=== PATIENT | male | born 1935 | race Caucasian/White ===

== ENCOUNTER → 2016-07-29 | Outpatient (CLI) | payer MEDICARE, BC ==
[~2016-07-29] MED LIST: CARAFATE1 GM/10 ML PO; DOCUSATE CALCI100 MG PO; DUO-KAPS1 CAP PO; MOBIC7.5 M1 PO; OYSTER SHELL C500 M3 PO; RED RICE YEAST E0.4%; RESTASIS0.05% OP; ST. JOSEPH81 M2 PO
== END ==
LOC: LAB 12:19
DX: K59.00 Constipation, unspecified (principal)

== ENCOUNTER → 2017-02-01 | Outpatient (CLI) | payer MEDICARE, BC ==
[2014-04-02 10:30] VITALS: BP 178/79
== END ==
LOC: LAB 10:10
DX: R30.0 Dysuria (principal); R31.9 Hematuria, unspecified

== ENCOUNTER → 2017-06-09 | Outpatient (CLI) | payer MEDICARE, BC ==
[2014-04-02 10:30] VITALS: BP 178/79
== END ==
LOC: RAD 08:35
DX: M79.671 Pain in right foot (principal)

== ENCOUNTER → 2017-09-30 | Outpatient (CLI) | payer MEDICARE, BC ==
[2014-04-02 10:30] VITALS: BP 178/79
[2017-09-30 08:06] LABS: EOS # 0.2 (0.04-0.40); EOS % 3.2 % (0.0-4.0); HEMATOCRIT 41.6 % (42.0-52.0); HEMOGLOBIN 13.7 g/dL (13.5-18.0); LYMPH# 1.7 (1.50-4.00); MEAN CELL VOLUME 97 fl (78-100); MEAN CORPUSCULAR HEMOGLOBIN 32 pg (27-31); MEAN CORPUSCULAR HGB CONC 33 g/dL (33-37); MEAN PLATELET VOLUME 9.4 fl (7.4-10.4); MONO # 0.6 (0.20-0.80); NEU # 4.4 (1.40-6.50); PLATELET COUNT 256 K/mm3 (130-400); RED BLOOD COUNT 4.31 M/mm3 (4.20-5.60); RED CELL DISTRIBUTION WIDTH 14.3 % (11.5-14.5)
[2017-09-30 08:37] LABS: ALBUMIN 4.1 g/dL (3.5-5.0); CALCIUM 8.9 mg/dL (8.4-10.2); POTASSIUM 3.7 mmol/L (3.6-5.0); TOTAL BILIRUBIN 0.5 mg/dL (0.2-1.3); TOTAL PROTEIN 7.4 g/dL (6.3-8.2)
[2017-09-30 08:57] LABS: URINE APPEARANCE CLEAR; URINE BILIRUBIN NEGATIVE (NEGATIVE); URINE BLOOD NEGATIVE (NEGATIVE); URINE COLOR YELLOW; URINE GLUCOSE NEGATIVE (NEGATIVE); URINE KETONE NEGATIVE (NEGATIVE); URINE LEUKOCYTE ESTERASE NEGATIVE (NEGATIVE); URINE NITRATE NEGATIVE (NEGATIVE); URINE PROTEIN(semi-quant) NEGATIVE (NEGATIVE); URINE UROBILINOGEN NORMAL (NORMAL)
[2017-09-30 08:58] LABS: URINE MUCUS PRESENT (NOT PRESENT)
[2017-09-30 09:17] LABS: ERYTHROCYTE SEDIMENTATION RATE 11 mm/hr (0-20)
[2017-09-30 22:50] LABS: TESTOSTERONE 200 ng/dL (221-716)
== END ==
LOC: LAB 07:17
PROVIDERS: Internal Medicine
DX: Z12.11 Encounter for screening for malignant neoplasm of colon (principal); R10.9 Unspecified abdominal pain; E78.5 Hyperlipidemia, unspecified; R97.20 Elevated prostate specific antigen [PSA]; N52.9 Male erectile dysfunction, unspecified; M79.671 Pain in right foot; R60.0 Localized edema; R30.0 Dysuria; R20.2 Paresthesia of skin

== ENCOUNTER 2017-10-08 15:50 | Emergency (ER) | payer MEDICARE, BC ==
[~2017-10-08] VITALS: Ht 182.9 cm; Wt 81.8 kg
[2017-10-08 17:20] VITALS: BP 186/86
== END 2017-10-08 17:16 | disposition home or self-care (01) ==
LOC: ED 15:50
DX: K22.2 Esophageal obstruction (principal); Z87.891 Personal history of nicotine dependence
CPT/HCPCS: J1610

== ENCOUNTER → 2017-10-18 | Outpatient (CLI) | payer MEDICARE, BC ==
[2017-10-08 17:20] VITALS: BP 186/86
[2017-10-18 23:13] LABS: FOLLICLE STIMULATING HORMONE 33.3 mIU/mL (1.0-12.0); LUTENIZING HORMONE 23.6 mIU/mL (0.6-12.1); PROLACTIN 10.2 ng/mL (3.5-19.4); TESTOSTERONE 201 ng/dL (221-716)
== END ==
LOC: LAB 10:49
PROVIDERS: Internal Medicine
DX: E29.1 Testicular hypofunction (principal)

== ENCOUNTER → 2018-06-16 | Outpatient (CLI) | payer MEDICARE, BC | LOC: LAB 14:54 | DX: N40.0 Benign prostatic hyperplasia without lower urinary tract symptoms (principal) ==

== ENCOUNTER → 2018-08-24 | Outpatient (CLI) | payer MEDICARE, BC ==
[2018-08-24 11:13] LABS: EOS # 0.2 (0.04-0.40); EOS % 2.1 % (0.0-4.0); HEMATOCRIT 39.6 % (42.0-52.0); HEMOGLOBIN 12.8 g/dL (13.5-18.0); LYMPH# 1.4 (1.50-4.00); MEAN CELL VOLUME 96 fl (78-100); MEAN CORPUSCULAR HEMOGLOBIN 31 pg (27-31); MEAN CORPUSCULAR HGB CONC 32 g/dL (33-37); MEAN PLATELET VOLUME 8.7 fl (7.4-10.4); MONO # 0.5 (0.20-0.80); NEU # 5.4 (1.40-6.50); PLATELET COUNT 257 K/mm3 (130-400); RED BLOOD COUNT 4.11 M/mm3 (4.20-5.60); WHITE BLOOD COUNT 7.5 K/mm3 (4.8-10.8)
[2018-08-24 11:32] LABS: ALBUMIN 4.1 g/dL (3.5-5.0); CALCIUM 8.8 mg/dL (8.4-10.2); POTASSIUM 4.3 mmol/L (3.6-5.0); TOTAL BILIRUBIN 0.5 mg/dL (0.2-1.3); TOTAL PROTEIN 6.9 g/dL (6.3-8.2)
[2018-08-24 12:36] LABS: ERYTHROCYTE SEDIMENTATION RATE 13 mm/hr (0-20)
[2018-08-25 00:17] LABS: TESTOSTERONE 151 ng/dL (221-716)
== END ==
LOC: LAB 10:55
PROVIDERS: Internal Medicine
DX: R20.2 Paresthesia of skin (principal); M10.9 Gout, unspecified; E23.0 Hypopituitarism; K90.9 Intestinal malabsorption, unspecified

== ENCOUNTER 2018-09-25 12:29 | Emergency (ER) | payer MEDICARE, BC ==
[~2018-09-25] VITALS: Ht 182.9 cm; Wt 81.8 kg
[2018-09-25] MEDS ORDERED: COZAAR100 MG PO (12:41)
[2018-09-25] MEDS ORDERED: NORVASC2.5 MG PO (12:41)
[2018-09-25] MEDS ORDERED: CELEBREX 1100 MG/CAP PO (12:44)
[2018-09-25 14:27] LABS: EOS # 0.1 (0.04-0.40); EOS % 0.9 % (0.0-4.0); HEMATOCRIT 38.9 % (42.0-52.0); HEMOGLOBIN 12.8 g/dL (13.5-18.0); LYMPH# 1.1 (1.50-4.00); MEAN CELL VOLUME 96 fl (78-100); MEAN CORPUSCULAR HEMOGLOBIN 32 pg (27-31); MEAN CORPUSCULAR HGB CONC 33 g/dL (33-37); MEAN PLATELET VOLUME 8.7 fl (7.4-10.4); MONO # 0.5 (0.20-0.80); NEU # 5.9 (1.40-6.50); PLATELET COUNT 244 K/mm3 (130-400); RED BLOOD COUNT 4.04 M/mm3 (4.20-5.60); RED CELL DISTRIBUTION WIDTH 13.6 % (11.5-14.5); WHITE BLOOD COUNT 7.6 K/mm3 (4.8-10.8)
[2018-09-25 14:55] LABS: ALT/SGPT 11 U/L (0-55); AST-SGOT 20 U/L (5-34); CALCIUM 9.4 mg/dL (8.8-10.0); CARBON DIOXIDE 24 mmol/L (23-31); GLUCOSE 103 mg/dL (75-110); POTASSIUM 4.2 mmol/L (3.5-5.1); SODIUM 141 mmol/L (136-145); TOTAL BILIRUBIN 0.4 mg/dL (0.2-1.2); TOTAL PROTEIN 6.4 g/dL (6.2-8.1)
[2018-09-25 15:15] LABS: TROPONIN-I < 0.03 ng/mL (<0.030)
[2018-09-25 15:25] LABS: PH-URINE 6.5 (5.0 - 8.0); URINE APPEARANCE CLEAR; URINE BILIRUBIN NEGATIVE (NEGATIVE); URINE BLOOD NEGATIVE (NEGATIVE); URINE COLOR YELLOW; URINE GLUCOSE NEGATIVE (NEGATIVE); URINE KETONE NEGATIVE (NEGATIVE); URINE NITRATE NEGATIVE (NEGATIVE); URINE PROTEIN(semi-quant) NEGATIVE (NEGATIVE); URINE UROBILINOGEN NORMAL (NORMAL)
[2018-09-25 15:26] LABS: URINE LEUKOCYTE ESTERASE NEGATIVE (NEGATIVE); URINE WBC 0-1 /hpf (0-3)
[2018-09-25 16:35] VITALS: BP 163/77
== END 2018-09-25 16:35 | disposition home or self-care (01) ==
LOC: ED 12:29
PROVIDERS: Nurse Practitioner
DX: R42 Dizziness and giddiness (principal); K22.2 Esophageal obstruction; Z90.49 Acquired absence of other specified parts of digestive tract; Z87.19 Personal history of other diseases of the digestive system; Z87.01 Personal history of pneumonia (recurrent); Z90.79 Acquired absence of other genital organ(s); Z90.89 Acquired absence of other organs; Z87.891 Personal history of nicotine dependence
CPT/HCPCS: J7030

== ENCOUNTER → 2018-09-26 | Outpatient (CLI) | payer MEDICARE, BC ==
[~2018-09-26] VITALS: Ht 182.9 cm; Wt 81.8 kg
[~2018-09-26] MED LIST changes: +CELEBREX 1100 MG/CAP PO; +COZAAR100 MG PO; +NORVASC2.5 MG PO
[2018-09-26 13:10] VITALS: BP 130/58
[2018-09-26 22:38] LABS: FOLLICLE STIMULATING HORMONE 30.8 mIU/mL (1.0-12.0); LUTENIZING HORMONE 28.7 mIU/mL (0.6-12.1); PROLACTIN 8.7 ng/mL (3.5-19.4)
== END ==
LOC: LAB 12:34
PROVIDERS: Internal Medicine
DX: R55 Syncope and collapse (principal)

== ENCOUNTER → 2018-10-05 | Outpatient (CLI) | payer MEDICARE, BC ==
[2018-09-26 13:10] VITALS: BP 130/58
== END ==
LOC: VAS 09:45 → RAD 09:45 → VAS 12:00
DX: I65.29 Occlusion and stenosis of unspecified carotid artery (principal); R09.89 Other specified symptoms and signs involving the circulatory and respiratory systems; R55 Syncope and collapse; R61 Generalized hyperhidrosis; R06.02 Shortness of breath

== ENCOUNTER → 2018-12-19 | Outpatient (CLI) | payer MEDICARE, BC ==
[2018-09-26 13:10] VITALS: BP 130/58
[2018-12-19 09:47] LABS: POTASSIUM 3.9 mmol/L (3.5-5.1)
== END ==
LOC: LAB 09:23
PROVIDERS: Internal Medicine
DX: I10 Essential (primary) hypertension (principal)

== ENCOUNTER → 2018-12-20 | Outpatient (CLI) | payer MEDICARE, BC ==
[2018-09-26 13:10] VITALS: BP 130/58
== END ==
LOC: RAD 07:17
DX: G31.9 Degenerative disease of nervous system, unspecified (principal); I67.82 Cerebral ischemia
CPT/HCPCS: A9585

== ENCOUNTER → 2019-04-03 | Outpatient (CLI) | payer MEDICARE, BC ==
[2018-09-26 13:10] VITALS: BP 130/58
[2019-04-03 09:00] LABS: EOS # 0.2 (0.04-0.40); EOS % 2.9 % (0.0-4.0); HEMOGLOBIN 12.1 g/dL (13.5-18.0); LYMPH# 1.5 (1.50-4.00); MEAN CELL VOLUME 97 fl (78-100); MEAN CORPUSCULAR HEMOGLOBIN 31 pg (27-31); MEAN CORPUSCULAR HGB CONC 32 g/dL (33-37); MONO # 0.6 (0.20-0.80); NEU # 4.9 (1.40-6.50); PLATELET COUNT 312 K/mm3 (130-400); RED BLOOD COUNT 3.92 M/mm3 (4.20-5.60); RED CELL DISTRIBUTION WIDTH 13.4 % (11.5-14.5); WHITE BLOOD COUNT 7.2 K/mm3 (4.8-10.8)
[2019-04-03 09:05] LABS: POTASSIUM 4.1 mmol/L (3.5-5.1)
[2019-04-03 09:06] LABS: CALCIUM 9.1 mg/dL (8.3-10.5)
[2019-04-03 09:08] LABS: TOTAL PROTEIN 6.8 g/dL (6.2-8.1)
[2019-04-03 09:10] LABS: TOTAL BILIRUBIN 0.4 mg/dL (0.2-1.2)
[2019-04-03 23:33] LABS: TESTOSTERONE 145 ng/dL (221-716)
[2019-04-05 01:00] LABS: LEVETIRACETAM (KEPPRA) 15 ug/mL (())
== END ==
LOC: LAB 08:11
PROVIDERS: Internal Medicine
DX: G40.909 Epilepsy, unspecified, not intractable, without status epilepticus (principal); K90.9 Intestinal malabsorption, unspecified; E23.0 Hypopituitarism; R73.02 Impaired glucose tolerance (oral)

== ENCOUNTER → 2020-07-10 | Outpatient (CLI) | payer MEDICARE, BC ==
[2018-09-26 13:10] VITALS: BP 130/58
[2020-07-10 10:49] LABS: EOS # 0.2 (0.04-0.40); EOS % 2.2 % (0.0-4.0); HEMATOCRIT 37.3 % (42.0-52.0); HEMOGLOBIN 12.1 g/dL (13.5-18.0); LYMPH# 1.3 (1.50-4.00); MEAN CELL VOLUME 98 fl (78-100); MEAN CORPUSCULAR HEMOGLOBIN 32 pg (27-31); MEAN CORPUSCULAR HGB CONC 32 g/dL (33-37); MEAN PLATELET VOLUME 8.9 fl (7.4-10.4); MONO # 0.6 (0.20-0.80); NEU # 4.7 (1.40-6.50); PLATELET COUNT 268 K/mm3 (130-400); RED BLOOD COUNT 3.81 M/mm3 (4.20-5.60); RED CELL DISTRIBUTION WIDTH 13.5 % (11.5-14.5); WHITE BLOOD COUNT 6.7 K/mm3 (4.8-10.8)
[2020-07-10 11:01] LABS: POTASSIUM 4.8 mmol/L (3.5-5.1)
[2020-07-10 11:02] LABS: ALBUMIN 3.9 g/dL (3.4-4.8)
[2020-07-10 11:04] LABS: TOTAL PROTEIN 6.7 g/dL (6.2-8.1)
[2020-07-10 11:06] LABS: TOTAL BILIRUBIN 0.4 mg/dL (0.2-1.2)
[2020-07-10 11:53] LABS: ERYTHROCYTE SEDIMENTATION RATE 38 mm/hr (0-20)
[2020-07-10 22:46] LABS: TESTOSTERONE 156 ng/dL (221-716)
[2020-07-11 04:12] LABS: LEVETIRACETAM (KEPPRA) 30 ug/mL (5-45)
== END ==
LOC: LAB 10:28
PROVIDERS: Internal Medicine
DX: Z12.5 Encounter for screening for malignant neoplasm of prostate (principal); G40.909 Epilepsy, unspecified, not intractable, without status epilepticus; K90.9 Intestinal malabsorption, unspecified; E78.5 Hyperlipidemia, unspecified; I10 Essential (primary) hypertension; E53.8 Deficiency of other specified B group vitamins; E23.7 Disorder of pituitary gland, unspecified; M10.00 Idiopathic gout, unspecified site

== ENCOUNTER → 2020-11-28 | Outpatient (CLI) | payer MEDICARE, BC | LOC: RAD 10:42 → EDSTATUS 10:43 → RAD 10:44 | DX: M47.816 Spondylosis without myelopathy or radiculopathy, lumbar region (principal); M51.36 Other intervertebral disc degeneration, lumbar region; M47.812 Spondylosis without myelopathy or radiculopathy, cervical region; S22.089A Unspecified fracture of T11-T12 vertebra, initial encounter for closed fracture; W19.XXXA Unspecified fall, initial encounter ==

== ENCOUNTER → 2020-12-02 | Outpatient (CLI) | payer MEDICARE, BC | LOC: RAD 10:42 | DX: S22.088A Other fracture of T11-T12 vertebra, initial encounter for closed fracture (principal) ==

== ENCOUNTER → 2021-12-31 | Outpatient (CLI) | payer MEDICARE, BC | LOC: LAB 11:28 | DX: R11.10 Vomiting, unspecified (principal); Z20.822 Contact with and (suspected) exposure to COVID-19 ==

== ENCOUNTER → 2022-01-12 | Outpatient (CLI) | payer MEDICARE, BC ==
[2022-01-12 16:31] LABS: BASO # 0.03 K/mm3 (0.02-0.10); EOS # 0.16 K/mm3 (0.04-0.40); EOS % 1.9 % (0.0-4.0); HEMATOCRIT 39.2 % (42.0-52.0); HEMOGLOBIN 12.7 g/dL (13.5-18.0); MEAN CELL VOLUME 98 fl (78-100); MEAN CORPUSCULAR HEMOGLOBIN 32 pg (27-31); MEAN CORPUSCULAR HGB CONC 32 g/dL (33-37); MEAN PLATELET VOLUME 8.8 fl (7.4-10.4); MONO # 0.68 K/mm3 (0.20-0.80); NEU # 5.41 K/mm3 (1.40-6.50); PLATELET COUNT 223 K/mm3 (130-400); RED BLOOD COUNT 3.99 M/mm3 (4.20-5.60); RED CELL DISTRIBUTION WIDTH 13.7 % (11.5-14.5); WHITE BLOOD COUNT 8.3 K/mm3 (4.8-10.8)
[2022-01-12 16:39] LABS: ALBUMIN 4.2 g/dL (3.4-4.8); POTASSIUM 4.2 mmol/L (3.5-5.1)
[2022-01-12 16:40] LABS: CALCIUM 9.5 mg/dL (8.3-10.5)
[2022-01-12 16:42] LABS: TOTAL PROTEIN 7.1 g/dL (6.2-8.1)
[2022-01-12 16:44] LABS: TOTAL BILIRUBIN 0.4 mg/dL (0.2-1.2)
[2022-01-12 16:49] LABS: MAGNESIUM 2.74 mg/dL (1.60-2.60)
[2022-01-12 16:54] LABS: URINE APPEARANCE CLEAR; URINE BILIRUBIN NEGATIVE (NEGATIVE); URINE BLOOD NEGATIVE (NEGATIVE); URINE COLOR YELLOW; URINE GLUCOSE NEGATIVE (NEGATIVE); URINE KETONE NEGATIVE (NEGATIVE); URINE LEUKOCYTE ESTERASE NEGATIVE (NEGATIVE); URINE MUCUS PRESENT (NOT PRESENT); URINE NITRATE NEGATIVE (NEGATIVE); URINE PROTEIN(semi-quant) TRACE (NEGATIVE); URINE UROBILINOGEN NORMAL (NORMAL)
[2022-01-12 18:24] LABS: ERYTHROCYTE SEDIMENTATION RATE 21 mm/hr (0-20)
[2022-01-12 23:37] LABS: TESTOSTERONE 131 ng/dL (221-716)
[2022-01-13 02:36] LABS: LEVETIRACETAM (KEPPRA) 21 ug/mL (5-45)
== END ==
LOC: LAB 15:53
PROVIDERS: Internal Medicine
DX: Z12.5 Encounter for screening for malignant neoplasm of prostate (principal); I67.9 Cerebrovascular disease, unspecified; G40.909 Epilepsy, unspecified, not intractable, without status epilepticus; E23.7 Disorder of pituitary gland, unspecified; Z20.822 Contact with and (suspected) exposure to COVID-19; R41.3 Other amnesia; I10 Essential (primary) hypertension; K90.9 Intestinal malabsorption, unspecified; E78.5 Hyperlipidemia, unspecified

== ENCOUNTER → 2022-01-18 | Outpatient (CLI) | payer MEDICARE, BC | LOC: RAD 14:23 | DX: G31.9 Degenerative disease of nervous system, unspecified (principal); I67.82 Cerebral ischemia | CPT/HCPCS: A9585 ==

== ENCOUNTER → 2022-06-14 | Outpatient (CLI) | payer MEDICARE, BC ==
[2022-06-14 10:24] LABS: POTASSIUM 4.5 mmol/L (3.5-5.1)
[2022-06-14 10:25] LABS: CALCIUM 9.6 mg/dL (8.3-10.5)
[2022-06-14 10:27] LABS: TOTAL PROTEIN 6.6 g/dL (6.2-8.1)
[2022-06-14 10:28] LABS: TOTAL BILIRUBIN 0.5 mg/dL (0.2-1.2)
[2022-06-14 10:33] LABS: MAGNESIUM 2.48 mg/dL (1.60-2.60)
[2022-06-14 10:34] LABS: BASO # 0.04 K/mm3 (0.02-0.10); EOS # 0.13 K/mm3 (0.04-0.40); EOS % 1.8 % (0.0-4.0); HEMATOCRIT 37.9 % (42.0-52.0); HEMOGLOBIN 12.3 g/dL (13.5-18.0); LYMPH# 1.22 K/mm3 (1.50-4.00); MEAN CELL VOLUME 99 fl (78-100); MEAN CORPUSCULAR HEMOGLOBIN 32 pg (27-31); MEAN CORPUSCULAR HGB CONC 33 g/dL (33-37); MONO # 0.65 K/mm3 (0.20-0.80); PLATELET COUNT 247 K/mm3 (130-400); RED BLOOD COUNT 3.84 M/mm3 (4.20-5.60); RED CELL DISTRIBUTION WIDTH 13.8 % (11.5-14.5); WHITE BLOOD COUNT 7.2 K/mm3 (4.8-10.8)
[2022-06-14 12:01] LABS: ERYTHROCYTE SEDIMENTATION RATE 17 mm/hr (0-20)
== END ==
LOC: LAB 08:55
PROVIDERS: Internal Medicine
DX: Z12.5 Encounter for screening for malignant neoplasm of prostate (principal); G40.909 Epilepsy, unspecified, not intractable, without status epilepticus; K90.9 Intestinal malabsorption, unspecified; I10 Essential (primary) hypertension; E23.7 Disorder of pituitary gland, unspecified; I67.9 Cerebrovascular disease, unspecified; E78.5 Hyperlipidemia, unspecified; M10.00 Idiopathic gout, unspecified site; R41.3 Other amnesia; R11.10 Vomiting, unspecified; M15.9 Polyosteoarthritis, unspecified

== ENCOUNTER 2022-12-17 10:02 | Outpatient (RCR) | payer MEDICARE, BC | END 2022-12-30 | disposition home or self-care (01) | LOC: PT | DX: M62.81 Muscle weakness (generalized) (principal) ==

== ENCOUNTER → 2023-01-12 | Outpatient (CLI) | payer MEDICARE, BC | LOC: LAB 12:31 | DX: U07.1 COVID-19 (principal) ==

== ENCOUNTER → 2023-02-10 | Outpatient (CLI) | payer MEDICARE, BC ==
[2023-02-10 10:39] LABS: BASO # 0.04 K/mm3 (0.02-0.10); EOS # 0.16 K/mm3 (0.04-0.40); HEMATOCRIT 36.9 % (42.0-52.0); LYMPH# 1.35 K/mm3 (1.50-4.00); MEAN CELL VOLUME 98 fl (78-100); MEAN CORPUSCULAR HEMOGLOBIN 32 pg (27-31); MEAN CORPUSCULAR HGB CONC 33 g/dL (33-37); MEAN PLATELET VOLUME 9.1 fl (7.4-10.4); MONO # 0.58 K/mm3 (0.20-0.80); NEU # 5.88 K/mm3 (1.40-6.50); PLATELET COUNT 211 K/mm3 (130-400); RED BLOOD COUNT 3.76 M/mm3 (4.20-5.60); RED CELL DISTRIBUTION WIDTH 14.4 % (11.5-14.5)
[2023-02-10 10:49] LABS: ALBUMIN 4.1 g/dL (3.4-4.8); POTASSIUM 4.1 mmol/L (3.5-5.1)
[2023-02-10 10:50] LABS: CALCIUM 9.5 mg/dL (8.3-10.5)
[2023-02-10 10:52] LABS: TOTAL PROTEIN 6.9 g/dL (6.2-8.1)
[2023-02-10 10:54] LABS: TOTAL BILIRUBIN 0.5 mg/dL (0.2-1.2)
[2023-02-10 10:59] LABS: MAGNESIUM 2.38 mg/dL (1.60-2.60)
[2023-02-10 12:35] LABS: ERYTHROCYTE SEDIMENTATION RATE 18 mm/hr (0-20)
[2023-02-14 21:07] LABS: LEVETIRACETAM (KEPPRA) 44.4 ug/mL (())
== END ==
LOC: LAB 10:01
PROVIDERS: Internal Medicine
DX: Z12.11 Encounter for screening for malignant neoplasm of colon (principal); Z12.5 Encounter for screening for malignant neoplasm of prostate; E53.8 Deficiency of other specified B group vitamins; I10 Essential (primary) hypertension; E23.7 Disorder of pituitary gland, unspecified; E78.5 Hyperlipidemia, unspecified; M10.00 Idiopathic gout, unspecified site; G40.909 Epilepsy, unspecified, not intractable, without status epilepticus; K90.9 Intestinal malabsorption, unspecified; R73.9 Hyperglycemia, unspecified

== ENCOUNTER → 2024-03-02 | Outpatient (CLI) | payer MEDICARE, BC ==
[2024-03-02 13:54] LABS: BASO # 0.03 K/mm3 (0.02-0.10); EOS % 2.6 % (0.0-4.0); HEMATOCRIT 37.5 % (42.0-52.0); HEMOGLOBIN 12.3 g/dL (13.5-18.0); LYMPH# 1.62 K/mm3 (1.50-4.00); MEAN CELL VOLUME 98 fl (78-100); MEAN CORPUSCULAR HEMOGLOBIN 32 pg (27-31); MEAN CORPUSCULAR HGB CONC 33 g/dL (33-37); MEAN PLATELET VOLUME 9.5 fl (7.4-10.4); MONO # 0.44 K/mm3 (0.20-0.80); NEU # 5.53 K/mm3 (1.40-6.50); PLATELET COUNT 209 K/mm3 (130-400); RED BLOOD COUNT 3.81 M/mm3 (4.20-5.60); RED CELL DISTRIBUTION WIDTH 13.9 % (11.5-14.5); WHITE BLOOD COUNT 7.8 K/mm3 (4.8-10.8)
[2024-03-02 14:02] LABS: TOTAL PROTEIN 6.7 g/dL (6.2-8.1)
[2024-03-02 14:03] LABS: TOTAL BILIRUBIN 0.4 mg/dL (0.2-1.2)
[2024-03-02 14:09] LABS: MAGNESIUM 2.27 mg/dL (1.60-2.60)
[2024-03-06 05:38] LABS: LEVETIRACETAM (KEPPRA) 38.6 ug/mL (())
== END ==
LOC: LAB 13:30
PROVIDERS: Internal Medicine
DX: Z12.5 Encounter for screening for malignant neoplasm of prostate (principal); G40.909 Epilepsy, unspecified, not intractable, without status epilepticus; M10.00 Idiopathic gout, unspecified site; K90.9 Intestinal malabsorption, unspecified; E78.5 Hyperlipidemia, unspecified; I10 Essential (primary) hypertension

== ENCOUNTER → 2024-06-25 | Outpatient (CLI) | payer MEDICARE, BC ==
[2024-06-25 15:46] LABS: BASO # 0.04 K/mm3 (0.02-0.10); EOS # 0.18 K/mm3 (0.04-0.40); EOS % 2.3 % (0.0-4.0); HEMATOCRIT 35.3 % (42.0-52.0); HEMOGLOBIN 11.6 g/dL (13.5-18.0); LYMPH# 1.56 K/mm3 (1.50-4.00); MEAN CELL VOLUME 99 fl (78-100); MEAN CORPUSCULAR HEMOGLOBIN 33 pg (27-31); MEAN CORPUSCULAR HGB CONC 33 g/dL (33-37); MEAN PLATELET VOLUME 9.1 fl (7.4-10.4); MONO # 0.55 K/mm3 (0.20-0.80); NEU # 5.53 K/mm3 (1.40-6.50); PLATELET COUNT 207 K/mm3 (130-400); RED BLOOD COUNT 3.57 M/mm3 (4.20-5.60); WHITE BLOOD COUNT 7.9 K/mm3 (4.8-10.8)
[2024-06-25 15:54] LABS: ALBUMIN 4.1 g/dL (3.4-4.8)
[2024-06-25 15:55] LABS: CALCIUM 9.5 mg/dL (8.3-10.5)
[2024-06-25 15:59] LABS: TOTAL BILIRUBIN 0.4 mg/dL (0.2-1.2)
[2024-06-25 16:03] LABS: MAGNESIUM 2.3 mg/dL (1.60-2.60)
[2024-06-27 15:12] LABS: A/G RATIO (PEP) 1.4 (0.7-1.7); BETA GLOBULINS (PEP) 0.8 g/dL (0.7-1.3)
[2024-06-27 16:10] LABS: KAPPA LAMBDA RATIO 1.58 (())
== END ==
LOC: LAB 15:22
PROVIDERS: Internal Medicine
DX: I10 Essential (primary) hypertension (principal); M10.00 Idiopathic gout, unspecified site; R63.4 Abnormal weight loss